=== PATIENT | male | born 1950 | race Caucasian/White ===

== ENCOUNTER → 2017-04-29 | Outpatient (CLI) | payer OTHER, BC ==
[~2017-04-29] MED LIST: AMLODIPINE BESY10 MG PO; ASPIR-LOW81 MG PO; BENZONATATE100 MG PO; CYCLOBENZAPRINE5 MG PO; FUROSEMIDE20 MG PO; K-DUR20 MEQ PO; LISINOPRIL20 MG PO; LISINOPRIL40 MG PO; MEN'S MULTI-VI1 EACH PO; METFORMIN HCL500 MG PO; NEXIUM20 MG PO; OMEPRAZOLE40 M1 PO; OXYCODONE HCL5 MG PO; PRAVACHOL10 MG PO; PROAIR HFA8.5 GM IH; PROTONIX20 MG PO; TRAZODONE HCL50 MG PO; VENLAFAXINE HC150 M1 PO; VITAMIN B-12250 MCG PO; X VIATE TP; potassium PO
== END | disposition home or self-care (01) ==
LOC: NUC 07:30
DX: Z01.810 Encounter for preprocedural cardiovascular examination (principal); I48.91 Unspecified atrial fibrillation; R93.1 Abnormal findings on diagnostic imaging of heart and coronary circulation
CPT/HCPCS: 78452; 78999; 93017; A9500; J2785

== ENCOUNTER 2017-06-02 14:46 | Observation (INO) | payer OTHER, BC ==
[~2017-06-02] VITALS: Ht 177.8 cm; Wt 161.0 kg
[~2017-06-02 14:46] MED LIST changes: -FUROSEMIDE20 MG PO; +GLUCOPHAGE1000 MG PO; +LASIX40 MG PO; -METFORMIN HCL500 MG PO
[2017-06-02 15:20] LABS: HEMATOCRIT 37.7 % (38.0-50.0); HEMOGLOBIN 12.2 G/DL (12.5-16.6); MCH 28.6 PG (29.0-34.0); MCHC 32.4 G/DL (30.0-36.0); MCV 88.5 FL (86-99); PLATELET COUNT 242 K/uL (156-360); RBC DIS.WIDTH-CV 13.6 % (11.8-14.6); RBC DIS.WIDTH-SD 43.9 % (39-53); RED BLOOD COUNT 4.26 M/uL (4.00-5.50); WHITE BLOOD COUNT 7.7 K/uL (4.1-10.2)
[2017-06-02 15:28] LABS: CHLORIDE 104 mEq/L (99-109); POTASSIUM 4.1 mEq/L (3.7-5.4); SODIUM 142 mEq/L (136-147)
[2017-06-02 15:30] LABS: GLUCOSE 181 mg/dL (70-99)
[2017-06-02 15:34] LABS: CREATININE 1.1 mg/dL (0.6-1.3); GFR ESTIMATE (CALCULATED) > 59 mL/min/ (58.99-99999)
[2017-06-02 15:35] LABS: UREA NITROGEN (BUN) 22 mg/dL (9-23)
[2017-06-02 15:40] LABS: TROP-I INTERPRETATION NEGATIVE; TROPONIN-I < 0.01 ng/mL (0.0-0.30)
[2017-06-02] MEDS ORDERED: MINIPRESS2 MG PO (17:19)
[2017-06-02] MEDS ORDERED: VITAMIN B-12250 MCG PO (17:20)
[2017-06-02] MEDS ORDERED: ELIQUIS5 MG PO (17:21)
[2017-06-02] MEDS ORDERED: LIPITOR40 MG PO (17:23)
[2017-06-02] MEDS ORDERED: INDERAL20 MG PO (17:23)
[2017-06-02] MEDS ORDERED: NORVASC5 MG PO (17:24)
[2017-06-02] MEDS ORDERED: COZAAR100 MG PO (17:24)
[2017-06-02 18:29] VITALS: BP 169/99
[2017-06-02 20:25] VITALS: BP 167/81
[2017-06-02 21:13] LABS: TROP-I INTERPRETATION NEGATIVE; TROPONIN-I 0.02 ng/mL (0.0-0.30)
[2017-06-02 23:19] VITALS: BP 158/92
[2017-06-03 04:06] LABS: TROP-I INTERPRETATION NEGATIVE; TROPONIN-I < 0.01 ng/mL (0.0-0.30)
[2017-06-03 05:08] VITALS: BP 161/78
[2017-06-03] MEDS ORDERED: NITROSTAT0.4 MG SL (07:55)
[2017-06-03 07:56] VITALS: BP 184/86
== END 2017-06-03 09:54 | disposition home or self-care (01) ==
LOC: EME 14:46 → EDOF 16:36 → ENRESERV 16:38 → 5WEST 18:00
PROVIDERS: Internal Medicine
DX: R07.89 Other chest pain (principal); I10 Essential (primary) hypertension; E11.9 Type 2 diabetes mellitus without complications; I48.91 Unspecified atrial fibrillation; G47.33 Obstructive sleep apnea (adult) (pediatric); E66.01 Morbid (severe) obesity due to excess calories; M19.90 Unspecified osteoarthritis, unspecified site; Z68.43 Body mass index [BMI] 50.0-59.9, adult; K21.9 Gastro-esophageal reflux disease without esophagitis; E03.9 Hypothyroidism, unspecified; Z87.19 Personal history of other diseases of the digestive system; Z79.84 Long term (current) use of oral hypoglycemic drugs; Z79.82 Long term (current) use of aspirin; Z88.5 Allergy status to narcotic agent
CPT/HCPCS: 71046; 80048; 80048 91; 82948; 84484; 85027; 93005; 99281; 99285; G0378

== ENCOUNTER 2017-06-12 10:06 | Day surgery (SDC) | payer OTHER, BC ==
[~2017-06-12] VITALS: Ht 179.1 cm; Wt 161.0 kg
[~2017-06-12 10:06] MED LIST changes: +COZAAR100 MG PO; +ELIQUIS5 MG PO; +INDERAL20 MG PO; +LIPITOR40 MG PO; +MINIPRESS2 MG PO; +NITROSTAT0.4 MG SL; +NORVASC5 MG PO
[2017-06-12] MEDS ORDERED: ASPIRIN81 M2 PO (10:40)
== END 2017-06-12 18:10 | disposition home or self-care (01) ==
LOC: CATH 10:06
PROVIDERS: Internal Medicine Cardiovascular Disease
DX: I48.0 Paroxysmal atrial fibrillation (principal); R07.9 Chest pain, unspecified; I10 Essential (primary) hypertension; E11.9 Type 2 diabetes mellitus without complications; E78.5 Hyperlipidemia, unspecified; E66.01 Morbid (severe) obesity due to excess calories; G47.33 Obstructive sleep apnea (adult) (pediatric); Z79.01 Long term (current) use of anticoagulants
CPT/HCPCS: 82948; C1769; C1887; J1644; J2250; J3010

== ENCOUNTER 2017-07-01 07:50 | Emergency (ER) | payer OTHER, BC ==
[~2017-07-01] VITALS: Ht 177.8 cm; Wt 159.0 kg
[~2017-07-01 07:50] MED LIST changes: +ASPIRIN81 M2 PO
[2017-07-01 08:24] LABS: BASOPHIL (%) 0.6 % (0-1); BASOPHIL COUNT 0.1 K/uL (0-0.1); EOSINOPHIL (%) 1.4 % (0-5); EOSINOPHIL COUNT 0.2 K/uL (0-0.3); HEMATOCRIT 37.9 % (38.0-50.0); HEMOGLOBIN 12.4 G/DL (12.5-16.6); IMMATURE GRANULOCYTE (%) 0.6 % (0.0-0.7); LYMPHOCYTE (%) 11.2 % (15-42); LYMPHOCYTE COUNT 1.2 K/uL (1.0-2.8); MCH 28.8 PG (29.0-34.0); MCHC 32.7 G/DL (30.0-36.0); MCV 87.9 FL (86-99); MONOCYTE (%) 5.7 % (3-12); MONOCYTE COUNT 0.6 K/uL (0-0.8); NEUTROPHIL (%) 80.5 % (45-76); NEUTROPHIL COUNT 8.7 K/uL (1.8-6.4); PLATELET COUNT 211 K/uL (156-360); RBC DIS.WIDTH-CV 13.4 % (11.8-14.6); RBC DIS.WIDTH-SD 43.6 % (39-53); RED BLOOD COUNT 4.31 M/uL (4.00-5.50); WHITE BLOOD COUNT 10.8 K/uL (4.1-10.2)
[2017-07-01 08:30] LABS: INTER. NORMALIZED RATIO 1.2
[2017-07-01 08:33] LABS: PTT 30.2 SEC (25-37)
[2017-07-01 08:38] LABS: CHLORIDE 102 mEq/L (99-109); POTASSIUM 4.4 mEq/L (3.7-5.4); SODIUM 138 mEq/L (136-147)
[2017-07-01 08:39] LABS: GLUCOSE 235 mg/dL (70-99)
[2017-07-01 08:43] LABS: CREATININE 1.1 mg/dL (0.6-1.3); GFR ESTIMATE (CALCULATED) > 59 mL/min/ (58.99-99999)
[2017-07-01 08:44] LABS: UREA NITROGEN (BUN) 19 mg/dL (9-23)
[2017-07-01 08:45] LABS: TROP-I INTERPRETATION NEGATIVE; TROPONIN-I < 0.01 ng/mL (0.0-0.30)
[2017-07-01 10:26] LABS: APPEARANCE SL.HAZY ((CLEAR)); BILIRUBIN NEGATIVE; BLOOD LARGE; COLOR YELLOW ((YELLOW)); GLUCOSE (STRIP) 50; KETONES NEGATIVE; LEUKOCYTES NEGATIVE; NITRITE NEGATIVE; PROTEIN (STRIP) 30; UROBILINOGEN 0.2 MG/DL (0.2-1.0)
[2017-07-01 10:39] LABS: BACTERIA NONE SEEN /HPF; EPITHELIAL CELLS NONE SEEN /HPF; MUCUS TRACE /LPF; RED BLOOD CELLS TNTC /HPF (0-5); UCUL ADDED? YES; WHITE BLOOD CELLS 0-5 /HPF (0-5)
[2017-07-01 11:15] LABS: TROP-I INTERPRETATION NEGATIVE; TROPONIN-I 0.02 ng/mL (0.0-0.30)
[2017-07-01] MEDS ORDERED: PERCOCET 5/31 TABLET PO (12:19)
[2017-07-01] MEDS ORDERED: ZOFRAN4 MG PO (12:20)
[2017-07-01] MEDS ORDERED: FLOMAX0.4 MG PO (12:20)
[2017-07-01 13:15] VITALS: BP 137/71
== END 2017-07-01 13:15 | disposition home or self-care (01) ==
LOC: EME 07:50
PROVIDERS: Emergency Medicine
DX: N13.2 Hydronephrosis with renal and ureteral calculous obstruction (principal); Z87.442 Personal history of urinary calculi; R94.31 Abnormal electrocardiogram [ECG] [EKG]; E11.9 Type 2 diabetes mellitus without complications; Z79.84 Long term (current) use of oral hypoglycemic drugs; G47.30 Sleep apnea, unspecified; Z79.82 Long term (current) use of aspirin; Z87.81 Personal history of (healed) traumatic fracture; Z90.49 Acquired absence of other specified parts of digestive tract; Z85.9 Personal history of malignant neoplasm, unspecified; Z88.5 Allergy status to narcotic agent
CPT/HCPCS: 71045; 74176; 80048; 81003; 83880; 84484; 85025; 85610; 85730; 87086; 93005; 99281; 99285; J1885; J3010